=== PATIENT | female | born 1950 | race Caucasian/White ===

== ENCOUNTER → 2017-02-19 09:17 | Outpatient (CLI) | payer MEDICARE, OTHER | END | disposition home or self-care (01) | LOC: D.RAD 09:17 | DX: S86.911A Strain of unspecified muscle(s) and tendon(s) at lower leg level, right leg, initial encounter (principal); X58.XXXA Exposure to other specified factors, initial encounter; Y93.89 Activity, other specified; Y92.029 Unspecified place in mobile home as the place of occurrence of the external cause ==

== ENCOUNTER → 2017-07-09 16:10 | Outpatient (CLI) | payer MEDICARE | END | disposition home or self-care (01) | LOC: D.LABREF 16:10 | DX: L02.31 Cutaneous abscess of buttock (principal) ==

== ENCOUNTER 2018-07-20 00:17 | Emergency (ER) | payer MEDICARE, MEDICAID ==
[~2018-07-20] VITALS: Ht 162.6 cm; Wt 66.8 kg
[2018-07-20 00:25] VITALS: Ht 162.6 cm; Wt 66.8 kg
[2018-07-20] MEDS ORDERED: LYRICA25 MG (00:26)
[2018-07-20] MEDS ORDERED: LASIX20 MG PO (00:26)
[2018-07-20] MEDS ORDERED: LEVEMIR IN100 UNITS/ SC (00:26)
[2018-07-20] MEDS ORDERED: NOVOLOG100 UNIT/1 SC (00:27)
[2018-07-20 00:46] LABS: BASOPHILS 0.6 % (0-2); EOSINOPHILS 0.5 % (0-7); HEMOGLOBIN 11.1 g/dL (12-16); IMMATURE GRANULOCYTES 0.4 % (0-5); LYMPHOCYTES 13.2 % (15-50); MCH 34.8 pg (26.0-34.0); MCHC 34.7 g/dL (31.0-37.0); MCV 100.3 fL (80.0-100.0); MEAN PLATELET VOLUME 11.7 fL (7.4-10.4); MONOCYTES 9.6 % (2-11); NEUTROPHILS 75.7 % (40-80); PLATELET COUNT 73 10x3/uL (130-400); RBC 3.19 10x6/uL (4.00-5.40); RDW 14.3 % (11.5-14.5); WBC 7.9 10x3/uL (4.8-10.8)
[2018-07-20 00:51] LABS: ALBUMIN 2.8 g/dL (3.4-5.0); ANION GAP 13.1 mmol/L (8-16); BILIRUBIN - TOTAL 1.34 mg/dL (0.2-1.3); CARBON DIOXIDE 23.6 mmol/L (21.0-32.0); CREATININE - SERUM 0.9 mg/dL (0.6-1.3); POTASSIUM - SERUM 3.7 mmol/L (3.5-5.1); PROTEIN - SERUM 5.7 g/dL (6.4-8.2)
[2018-07-20 01:03] LABS: TROPONIN-I 0.032 ng/mL (0.000-0.060)
[2018-07-20 02:11] VITALS: BP 118/50
== END 2018-07-20 02:11 | disposition home or self-care (01) ==
LOC: D.ER 00:17
PROVIDERS: Family Medicine
DX: R50.9 Fever, unspecified (principal); E11.9 Type 2 diabetes mellitus without complications

== ENCOUNTER → 2018-07-29 08:22 | Outpatient (CLI) | payer MEDICARE, MEDICAID ==
[2018-07-20 00:25] VITALS: BMI 25.3
[~2018-07-29 08:22] MED LIST: LASIX20 MG PO; LEVEMIR IN100 UNITS/ SC; LYRICA25 MG; NOVOLOG100 UNIT/1 SC
== END | disposition home or self-care (01) ==
LOC: D.US 08:22
PROVIDERS: ATTEND Family Medicine
DX: R60.0 Localized edema (principal)

== ENCOUNTER → 2018-09-09 11:13 | Outpatient (CLI) | payer MEDICARE, MEDICAID ==
[2018-07-20 00:25] VITALS: BMI 25.3
== END | disposition home or self-care (01) ==
LOC: D.CT 11:13
PROVIDERS: ATTEND Family Medicine
DX: G45.9 Transient cerebral ischemic attack, unspecified (principal)